=== PATIENT | female | born 1990 | race Caucasian/White ===

== ENCOUNTER 2020-04-04 14:36 | Emergency (ER) | payer OTHER, MEDICAID, SELFPAY ==
[2020-04-04 14:47] VITALS: BP 178/91; PULSE 100; RESP 20; TEMP 36.6; O2SAT 100
--- NOTE | 2020-04-04 15:02 | ED.NECK ---
HPI - Neck Pain/Injury General Chief Complaint: Neck Pain/Injury Stated Complaint: Neck pain Source: patient and RN notes reviewed Limitations: no limitations History of Present Illness HPI Narrative: The obese patient, breast-feeding on minimal meds recent COVID infection, presents with neck pain. Patient states she has a couple day history of gradual onset typical, midline neck pain that is mild, worse with motion. She has had it in the past with prior imaging by chiropractor. Symptoms are mild began upon awakening, worse with motion; no fever, numbness/weakness, radiating pain, gait changes; no cough, loss of taste/smell, sore throat, URI?sinusitis,, rash. Related Data Allergies Allergy/AdvReac Type Severity Reaction Status Date / Time Sulfa (Sulfonamide Allergy Unknown Verified 04/04/20 14:47 Antibiotics) Review of Systems Review of Systems: Narrative: The patient has been informed that they may have pre-hypertension or Hypertension based on a BP reading in the department. I recommend that the patient call the primary care provider listed on their discharge instructions or a physician of their choice this week to arrange follow up for further evaluation of possible pre-hypertension or Hypertension General/Constitutional: No weight loss,fever Eyes: N0: Redness,discharge Ears/Nose/Throat: No: Epistaxis,ear discharge Respiratory: Denies: Hemoptysis Gastrointestinal: No Vomiting, Bleeding-rectal Skin: No Lumps, eruption Neurologic: No Focal Weakness,Sz Hematologic: Denies: Petechiae/Purpura Psychiatric: No: Suicida ideationl All Other Systems: Reviewed and Negative PMFSH Comments At time of signature, agree with nursing past medical, surgical, social and family history. There is no relevant family history pertinent to the presenting complaint Exam Narrative: Exam Narrative: General Appearance: Well appearing, Well nourished/obese, Conjunctiva clear Ears: External ear normal Nose: Normal nose Mouth/Throat: Normal appearing, Supple Respiratory: Airway patent Musculoskeletal: Normal strength (no footdrop, 5/5 : Bi/Tri, no saddle weakness) Spine/Back: Paraspinal muscle tender (with mild decreased range of motion on flexion/extension, lateral bending Skin: Normal color Neurological: A&O x3, CN II-XII intact, Normal reflexes (symmetric,1+ bi) Psychiatric: Normal mood Course Vital Signs Vital signs: Vital Signs Temperature 98 F 04/04/20 14:47 Pulse Rate 04/04/20 14:47 Respiratory Rate 04/04/20 14:47 Blood Pressure 178/91 H 04/04/20 14:47 Pulse Oximetry 100 04/04/20 14:47 Temperature 98 F 04/04/20 14:47 Pulse Rate 100 04/04/20 14:47 Respiratory Rate 04/04/20 14:47 Blood Pressure 178/91 H 04/04/20 14:47 Pulse Oximetry 100 04/04/20 14:47 Discharge Plan Discharge Clinical Impression: Strain of neck muscle Qualifiers: Encounter type: initial encounter Qualified Code(s): S16.1XXA - Strain of muscle, fascia and tendon at neck level, initial encounter Patient Disposition: Home, Self-Care Condition: Stable Instructions: Cervical Strain (ED) Prescriptions: New prednisone 20 mg tablet 60 mg PO DAILY Qty: 9 RF: 0 acetaminophen-codeine 300-30 mg tablet 1 tablet PO HS PRN (Reason: pain) Qty: 10 RF: 0 tramadol 50 mg tablet 50 mg PO TID PRN (Reason: pain) Qty: 15 RF: 1 Interventions: Discharge Disposition Last Done: 04/04/20 15:27 Follow-up/Referrals: UNKNOWN,DOCTOR [Primary Care Provider] - Discharge Date/Time: 04/04/20 15:13
== END 2020-04-04 15:13 | disposition home or self-care (01) ==
PROVIDERS: Emergency Provider Emergency Medicine
DX: S16.1XXA Strain of muscle, fascia and tendon at neck level, initial encounter (principal); X58.XXXA Exposure to other specified factors, initial encounter
CPT/HCPCS: 99213; G0463